=== PATIENT | female | born 1980 | race Hispanic/Latino ===

== ENCOUNTER → 2021-08-05 | Outpatient (CLI) | payer BC | END | disposition home or self-care (01) | LOC: SHCH 14:59 | PROVIDERS: ATTEND Student in an Organized Health Care Education/Training Program | DX: R55 Syncope and collapse (principal); I10 Essential (primary) hypertension; E78.5 Hyperlipidemia, unspecified | CPT/HCPCS: 93306; 93356 ==

== ENCOUNTER → 2023-01-02 | Outpatient (CLI) | payer BC ==
[2023-01-02 08:56] LABS: BASOPHILS % (AUTO) 0.5 % (0.0-5.0); EOSINOPHILS % (AUTO) 2.2 % (0.0-8.0); HEMATOCRIT 37.9 % (36-48); LYMPHOCYTES % (AUTO) 24.6 % (21.0-51.0); MEAN CORPUSCULAR HEMOGLOBIN 25.1 pg (27.0-33.0); MEAN CORPUSCULAR HGB CONC 31.7 g/dL (32.0-36.0); MEAN CORPUSCULAR VOLUME 79.1 fL (79-99); MONOCYTES % (AUTO) 6.3 % (3.0-13.0); NEUTROPHILS % (AUTO) 65.9 % (40.0-77.0); PLATELET COUNT (AUTO) 301 K/uL (130-400); RED BLOOD CELL COUNT(AUTO) 4.79 MIL/uL (4.00-5.50); RED CELL DISTRIBUTION WIDTH 14.9 % (11.0-15.5); WHITE BLOOD COUNT (AUTO) 10.4 K/uL (4.8-10.8)
[2023-01-02 09:06] LABS: CREATININE 0.7 mg/dL (0.5-1.5); POTASSIUM 4.2 mmol/L (3.5-5.1)
== END | disposition home or self-care (01) ==
LOC: LAB 08:33
PROVIDERS: ATTEND Urology
DX: R10.84 Generalized abdominal pain (principal)
CPT/HCPCS: 36415; 80048; 85025

== ENCOUNTER → 2023-01-03 | Outpatient (CLI) | payer BC ==
[~2023-01-03] MED LIST: IOHEXOL 350 MG/ML 100ML INFUS..BTL IV ONE
== END | disposition home or self-care (01) ==
LOC: RAH 09:05
PROVIDERS: ATTEND Urology
DX: R10.84 Generalized abdominal pain (principal); N83.202 Unspecified ovarian cyst, left side; N32.89 Other specified disorders of bladder; M47.815 Spondylosis without myelopathy or radiculopathy, thoracolumbar region
CPT/HCPCS: 74178; Q9967

== ENCOUNTER → 2023-01-05 | Outpatient (CLI) | payer BC | END | disposition home or self-care (01) | LOC: RAH 14:10 | PROVIDERS: ATTEND Family Medicine | DX: R51.9 Headache, unspecified (principal) | CPT/HCPCS: 70450 ==

== ENCOUNTER → 2025-02-12 | Outpatient (CLI) | payer BC ==
--- NOTE | 2025-02-13 10:21 | HMCIMG ---
PROCEDURE: MAMMO DX BILATERAL, US BREAST COMPLETE UNILATERAL HISTORY: Right breast lump COMPARISON: None TECHNIQUE: Right breast digital diagnostic mammogram with CAD was performed. Additional cone compression views and magnification views were obtained. Right breast ultrasound study was performed. Markers were placed in the region of interest. FINDINGS: The breasts are heterogeneously dense, which may obscure small masses. No mammographic evidence of soft tissue mass is seen. There is asymmetric breast density area with microcalcifications in the upper outer quadrant of the right breast. MRI with and without contrast may be performed for further evaluation. Subsequently, tissue correlation may be obtained with Mammotome stereotactic guidance core biopsy. There is no evidence of nipple retraction or skin thickening. IMPRESSION: 1. There is asymmetric breast density area with microcalcifications in the upper outer quadrant of the right breast. MRI with and without contrast may be performed for further evaluation. Subsequently, tissue correlation may be obtained with Mammotome stereotactic guidance core biopsy depending on the result of the MRI study. BI-RADS: CATEGORY 0: INCOMPLETE. NEED ADDITIONAL IMAGING EVALUATION Recommend monthly self breast exam as well as annual clinical examination. A negative x-ray should not delay biopsy if a dominant or clinically suspicious mass is present, since 8-10% of cancers are not identified by mammography. Dense breasts particularly, may obscure an underlying neoplasm. Some of these may be detected clinically and therefore, clinical examination is an essential part of breast evaluation.
== END | disposition home or self-care (01) ==
LOC: RAH 07:29
PROVIDERS: ATTEND Obstetrics & Gynecology
DX: N63.12 Unspecified lump in the right breast, upper inner quadrant (principal); R92.0 Mammographic microcalcification found on diagnostic imaging of breast; R92.333 Mammographic heterogeneous density, bilateral breasts; N64.89 Other specified disorders of breast
CPT/HCPCS: 76641; 77066

== ENCOUNTER → 2025-02-25 | Outpatient (CLI) | payer BC ==
[~2025-02-25] MED LIST changes: +GADOTERATE MEGLUMINE 10 MMOL/20 ML VIAL IV ONE; -IOHEXOL 350 MG/ML 100ML INFUS..BTL IV ONE
--- NOTE | 2025-02-25 12:28 | HMCIMG ---
MRI BREAST [facility] HISTORY: Inconclusive findings COMPARISON: Mammogram and ultrasound from February 12, 2023 TECHNIQUE: MRI of the bilateral breasts was performed utilizing multiple pulse sequences in axial, coronal and sagittal planes. Patient was given 20 cc of Clariscan through intravenous route. Dynamic imaging technique was used. FINDINGS: Bilateral dense fibroglandular tissue is seen. No nipple retraction or skin thickening is seen. No definite mass lesion or abnormal enhancement is seen in this MRI study. However, due to mammogram findings upright breast, six-month follow-up study with mammogram is recommended. IMPRESSION: 1. No MR evidence of mass lesion or abnormal enhancement is seen. Six-month follow-up with mammogram is recommended.
== END | disposition home or self-care (01) ==
LOC: RAH 10:35
PROVIDERS: ATTEND Obstetrics & Gynecology
DX: R92.8 Other abnormal and inconclusive findings on diagnostic imaging of breast (principal); R92.323 Mammographic fibroglandular density, bilateral breasts
CPT/HCPCS: 77049; A9575

== ENCOUNTER → 2025-08-15 | Outpatient (CLI) | payer BC ==
--- NOTE | 2025-08-18 11:56 | HMCIMG ---
Right BREAST ULTRASOUND: Clinical history follow-up for mammogram and MRI for right breast with cluster of microcalcification.. COMPARISON: Prior MR the breasts was performed on 02/25/2025 prior ultrasound was performed on 02/12/2025 and prior mammogram from 02/12/2025 are available. Finding: Real-time examination of the [right/left] breast demonstrates heterogeneous echotexture throughout the breast.. The right breast at 12:00 there is a small cyst measuring 0.3 x 0.2 x 0.4 cm. Microcalcification cannot be seen on ultrasound. There are 2 benign-appearing bilateral axillary lymph node measuring 1.3 x 0.8 x 1.3 cm second lymph node measuring 0.6 x 0.6 x 0.7 cm. IMPRESSION: Moderately dense breast Cyst seen in the right breast at 12:00 No hypoechoic mass or microcalcifications seen which can only be seen on mammogram.. I would recommend 6 months follow-up for total of 2 years as recommended by ACR BI-RADS 3 FINAL ASSESSMENT: ACR: BI-RAD -3. Probably Benign: Finding(s) has a high probability of being benign; short term follow up is suggested. Management: Short-interval (6-month) follow-up or continued surveillance mammography. Likelihood of Cancer: 0% but <=2% likelihood of malignancy.
--- NOTE | 2025-08-18 12:04 | HMCIMG ---
DIGITAL right breast DIAGNOSTIC MAMMOGRAM Technique: The digital mammographic examination of right breast in craniocaudal, mediolateral oblique views along with CAD was obtained. Ultrasound of the right breast was also obtained. History: This is a 45 years year-old female 3, para2 Ab1 . Patient has no family history of breast cancer. Patient has no complaint Reference:Prior mammogram from 08/15/2025, 02/12/2025 are available. Prior breast ultrasound from 02/12/2025 and prior MRI from 02/25/2025 demonstrate no mass lesion or abnormal enhancing. Breast composition: Breast composition C: The breasts are heterogeneously dense, which may obscure small masses. Finding: The digital mammographic examination of right breast in craniocaudal and mediolateral oblique view along with CAD demonstrates 2 clusters of calcifications seen one in the right upper-outer quadrant and right lower inner quadrant. Both breasts appears to be moderately heterogeneously dense. Ultrasound demonstrate a small cyst at 12:00. There is benign vascular calcification suggesting of atherosclerotic changes.. There is no evidence of any dendritic mass, cluster microcalcification or architectural distortion. The retromammary fat appears to be normal. IMPRESSION: Due to cluster microcalcifications seen in the right breast. I would recommend six-month follow-up with mammogram and ultrasound. In the next 6 months patient also needs left breast mammogram due to annual examination.. The six-month follow-up up for the right breast for total of 2 years. FINAL ASSESSMENT: ACR: BI-RAD -3. Probably Benign: Finding(s) has a high probability of being benign; short term follow up is suggested. Management: Short-interval (6-month) follow-up or continued surveillance mammography. Likelihood of Cancer: 0% but <=2% likelihood of malignancy. NOTE: IF A WORK-UP OF THIS PATIENT LEADS TO A BIOPSY, PLEASE FORWARD A COPY OF THE PATHOLOGY REPORT TO OUR OFFICE REQUIRED BY [facility] E[employer] JULY 30, 1994. A NEGATIVE MAMMOGRAM SHOULD NOT PRECLUDE BIOPSY OF A CLINICALLY PALPABLE SUSPICIOUS MASS, 10% OF BREAST CANCERS ARE MAMMOGRAPHICALLY OCCULT. THIS MAMMOGRAPHY FACILITY IS FULLY ACCREDITED BY THE FOOD AND DRUG [employer]ATION (FDA). THANK YOU FOR THIS REFERRAL.
== END | disposition home or self-care (01) ==
LOC: RAH 08:44
PROVIDERS: ATTEND Obstetrics & Gynecology
DX: N60.01 Solitary cyst of right breast (principal); R92.8 Other abnormal and inconclusive findings on diagnostic imaging of breast; N63.10 Unspecified lump in the right breast, unspecified quadrant; R92.331 Mammographic heterogeneous density, right breast
CPT/HCPCS: 76641; 77065